=== PATIENT | female | born 1950 | race American Indian/Alaskan Native ===

== ENCOUNTER 2017-04-28 13:53 | Outpatient (CLI) | payer MEDICARE, OTHER ==
--- NOTE | 2017-04-30 10:12 | Mammography Report ---
Bilateral mammogram: No previous studies available. His CAD study utilized. Findings: Heterogeneous breast parenchyma bilaterally. No microcalcification. Normal axilla. Focal dense asymmetry outer posterior left breast and 2 smaller asymmetries inner posterior left breast, seen on CC view only. Impression: Focal asymmetries in left breast. Comparison with previous studies is recommended. If previous studies are not available spot negative sonographic examination advised. BI-RADS CATEGORY: 0 = Needs additional imaging evaluation ACR BI-RADS MAMMOGRAPHIC CODES: 0 = Needs additional imaging evaluation; 1 = Negative; 2 = Benign; 3 = Probably benign; 4 = Suspicious; 5 = Malignant; 6 = Known biopsy-proven malignancy COMMENT: 1. Dense breast tissue, i.e., adenosis, fibrocystic changes, etc., may obscure an underlying neoplasm. 2. Approximately 10% of cancers are not detected with mammography. 3. A negative mammography report should not delay biopsy if a clinically suspicious mass is present. COMMENT: Patient follow-up letters are generated in [employer].
== END 2017-04-28 13:54 | disposition home or self-care (01) ==
LOC: MAMMO 13:53
PROVIDERS: ATTEND Internal Medicine
DX: Z12.31 Encounter for screening mammogram for malignant neoplasm of breast (principal)
CPT/HCPCS: 77067

== ENCOUNTER 2017-06-16 14:02 | Outpatient (CLI) | payer MEDICARE, OTHER ==
--- NOTE | 2017-06-16 15:15 | Mammography Report ---
Left mammogram: Recall patient for asymmetry on recent screening exam of April 28. Additional spot CC and lateral projections are performed. Asymmetries are no longer identified. Impression: Benign findings. Recommendation: Annual mammogram followup. BI-RADS CATEGORY: 1 = Negative ACR BI-RADS MAMMOGRAPHIC CODES: 0 = Needs additional imaging evaluation; 1 = Negative; 2 = Benign; 3 = Probably benign; 4 = Suspicious; 5 = Malignant; 6 = Known biopsy-proven malignancy COMMENT: 1. Dense breast tissue, i.e., adenosis, fibrocystic changes, etc., may obscure an underlying neoplasm. 2. Approximately 10% of cancers are not detected with mammography. 3. A negative mammography report should not delay biopsy if a clinically suspicious mass is present.
== END 2017-06-16 14:03 | disposition home or self-care (01) ==
LOC: MAMMO 14:02
PROVIDERS: ATTEND Internal Medicine
DX: R92.2 Inconclusive mammogram (principal)